=== PATIENT | female | born 1955 | race Caucasian/White ===

== ENCOUNTER 2022-01-29 07:55 | Inpatient (IN) ==
[2022-01-29] MEDS ORDERED: Ondansetron 4 mg VIAL 2 MG/ML 2 ml VIAL IV ONE (08:10)
[2022-01-29] MEDS ORDERED: Lactated Ringers 1000 ml BAG 1,000 ML IV ONE ×2 (08:10→10:16)
[2022-01-29] MEDS ORDERED: Famotidine IV 10 MG/ML 2 ml VIAL (20 mg) IV SLOW PU ONE (08:10)
[2022-01-29 08:51] LABS: ABS Lymphocytes 0.6 10^3/ul (1.0-4.8); ABS Monocytes 0.5 10^3/ul (0-0.8); ABS Neutrophils 9.4 10^3/ul (1.5-7.7); ABS Nucleated RBC 0.1 10^3/ul; Hematocrit 48 % (35-47); Hemoglobin 16.2 g/dL (12.0-16.0); Lymphocyte % 5.5 %; Mean Corpuscular HGB Conc 34 g/dL (31-36); Mean Corpuscular Hemoglobin 35 pg (27-31); Mean Corpuscular Volume 103 fL (80-97); Mean Platelet Volume 8.9 fL (7.4-10.4); Nucleated Red Blood Cells % 0.5; Platelet Count 242 10^3/uL (150-450); Red Blood Count 4.63 10^6 /uL (3.70-4.87); Red Cell Distribution Width 15 % (10-15); White Blood Count 10.5 10^3/uL (3.5-10.8)
[2022-01-29 09:42] LABS: Albumin/Globulin Ratio 1.6 (1-3); C Reactive Protein 18.85 mg/L (<8.01); Calcium 10.1 mg/dL (8.6-10.3); Globulin 3.2 g/dL (2-4); Potassium 3.9 mmol/L (3.5-5.0); Total Bilirubin 1.1 mg/dL (0.2-1.0); Total Protein 8.2 g/dL (6.4-8.9); eGFR CKD-EPI 88.3 (>60)
[2022-01-29] MEDS ORDERED: Morphine 4 MG/ML VIAL (1 ml) IV ONE (10:16)
[2022-01-29] MEDS ORDERED: Iohexol 350 (CONTRAST) 500 ML MDV IV ONE (10:57)
[2022-01-29 14:44] LABS: Urine Appearance Cloudy; Urine Bilirubin Negative (Negative); Urine Blood 1+ (Negative); Urine Color Straw; Urine Glucose Negative (Negative); Urine Ketones Negative (Negative); Urine Nitrite Negative (Negative); Urine Protein Negative (Negative); Urine Specific Gravity 1.014 (1.002-1.030); Urine Urobilinogen Negative (Negative)
[2022-01-29 14:46] LABS: Urine Bacteria 1+ (Absent); Urine Red Blood Cell Trace(0-2/hpf) (Absent); Urine Squamous Epithelial Cell Present (Absent); Urine White Blood Cell Trace(0-5/hpf) (Absent)
[2022-01-29 17:51] LABS: HDL Cholesterol 88.7 mg/dL
[2022-01-29] MEDS ORDERED: Lactated Ringers 1000 ml BAG 1,000 ML IV SCH (18:00)
[2022-01-29] MEDS: HYDROmorphone 1 MG/1 ML SYRINGE IV SLOW PU PRN (19:23)
[2022-01-29] MEDS: Enoxaparin 40 MG/0.4 ML SYR SUBCUT SCH (19:28)
[2022-01-29] MEDS ORDERED: Ondansetron 4 mg VIAL 2 MG/ML 2 ml VIAL IV PRN (20:28)
[2022-01-29] MEDS: NS 0.9% 1000 ml BAG 1,000 ML IV SCH (20:44)
[2022-01-30] MEDS: NS 0.9% 1000 ml BAG 1,000 ML IV SCH ×5 (01:51→21:46)
[2022-01-30] MEDS: HYDROmorphone 0.5 MG/0.5 ML SYRINGE IV SLOW PU PRN (01:55)
[2022-01-30 05:46] LABS: ABS Eosinophils 0.1 10^3/ul (0-0.6); ABS Monocytes 0.4 10^3/ul (0-0.8); ABS Neutrophils 4.1 10^3/ul (1.5-7.7); Eosinophil % 1.1 %; Hematocrit 37 % (35-47); Hemoglobin 12.4 g/dL (12.0-16.0); Lymphocyte % 18.7 %; Mean Corpuscular HGB Conc 34 g/dL (31-36); Mean Corpuscular Hemoglobin 35 pg (27-31); Mean Corpuscular Volume 105 fL (80-97); Mean Platelet Volume 9.4 fL (7.4-10.4); Platelet Count 133 10^3/uL (150-450); Red Blood Count 3.53 10^6 /uL (3.70-4.87); Red Cell Distribution Width 15 % (10-15); White Blood Count 5.6 10^3/uL (3.5-10.8)
[2022-01-30 06:03] LABS: Albumin 3.6 g/dL (3.2-5.2); Albumin/Globulin Ratio 1.6 (1-3); Calcium 8.5 mg/dL (8.6-10.3); Globulin 2.2 g/dL (2-4); Potassium 3.5 mmol/L (3.5-5.0); Total Bilirubin 0.8 mg/dL (0.2-1.0); Total Protein 5.8 g/dL (6.4-8.9); eGFR CKD-EPI 97.3 (>60)
[2022-01-30] MEDS: HYDROmorphone 1 MG/1 ML SYRINGE IV SLOW PU PRN ×3 (07:18→21:46)
[2022-01-30] MEDS ORDERED: Pneumococcal Vac 23-Polyvalent IM ONE (09:00)
[2022-01-30] MEDS ORDERED: Influenza vaccine *QUAD* *2022-23* 0.5 ML SYRINGE IM ONE (09:00)
[2022-01-30] MEDS: Enoxaparin 40 MG/0.4 ML SYR SUBCUT SCH (20:04)
[2022-01-31] MEDS: HYDROmorphone 0.5 MG/0.5 ML SYRINGE IV SLOW PU PRN (04:28)
[2022-01-31] MEDS: NS 0.9% 1000 ml BAG 1,000 ML IV SCH (04:28)
[2022-01-31 06:31] LABS: Calcium 8.2 mg/dL (8.6-10.3); Magnesium 1.3 mg/dL (1.9-2.7); Phosphorus 2.5 mg/dL (2.5-5.0); Potassium 3.2 mmol/L (3.5-5.0)
[2022-01-31 06:40] LABS: ABS Eosinophils 0.1 10^3/ul (0-0.6); ABS Lymphocytes 0.8 10^3/ul (1.0-4.8); ABS Monocytes 0.3 10^3/ul (0-0.8); ABS Neutrophils 2.3 10^3/ul (1.5-7.7); Eosinophil % 1.8 %; Hematocrit 31 % (35-47); Hemoglobin 10.7 g/dL (12.0-16.0); Lymphocyte % 22.9 %; Mean Corpuscular HGB Conc 34 g/dL (31-36); Mean Corpuscular Hemoglobin 36 pg (27-31); Mean Corpuscular Volume 105 fL (80-97); Mean Platelet Volume 9.7 fL (7.4-10.4); Nucleated Red Blood Cells % 0.1; Platelet Count 113 10^3/uL (150-450); Red Blood Count 2.98 10^6 /uL (3.70-4.87); Red Cell Distribution Width 15 % (10-15); White Blood Count 3.5 10^3/uL (3.5-10.8)
[2022-01-31] MEDS ORDERED: Magnesium Sulfate 2 gm BAG 2 GM/50 ML BAG IVPB ONE (07:12)
[2022-01-31] MEDS ORDERED: Potassium Chlor 20 meq TAB.ER PO ONE ×2 (07:13→07:17)
[2022-01-31] MEDS ORDERED: Magnesium Sulf 4 GM/100 ML IV 4,000 MG/100 ML BAG IVPB ONE (07:17)
[2022-01-31] MEDS ORDERED: NS 0.9% 1000 ml BAG 1,000 ML IV SCH (08:26)
[2022-01-31 15:23] VITALS: BP 141/53
== END 2022-01-31 16:45 | disposition home or self-care (01) | DRG 439 ==
LOC: ED 07:55 → SUATTDRO 14:45 → EDHOLD 14:45 → MED 16:20
PROVIDERS: ADMIT Hospitalist; ATTEND Internal Medicine